=== PATIENT | male | born 1955 | race Caucasian/White ===

== ENCOUNTER → 2024-01-26 11:27 | Outpatient (REF) | payer OTHER, SELFPAY ==
[2024-01-26 11:51] VITALS: BP 133/71; BP_SYST 58
[2024-01-26 12:51] VITALS: BP 118/70
== END ==
LOC: RADI 11:27
PROVIDERS: ATTENDING PHYSICIAN Internal Medicine Hematology & Oncology; FAMILY PHYSICIAN Family Medicine
DX: R77.9 Abnormality of plasma protein, unspecified (principal); G62.9 Polyneuropathy, unspecified; E85.9 Amyloidosis, unspecified
CPT/HCPCS: 88305; 20206; 76942; 88313

== ENCOUNTER → 2024-04-17 11:03 | Outpatient (REF) | payer OTHER, SELFPAY ==
[2024-04-17 11:32] LABS: % Basophils 0.6 % (0-2); % Eosinophils 5.2 % (0-6); % Immature Granulocytes 0.3 % (0-0.5); % Monocytes 12.7 % (1.7-9.3); % Neutrophils 50.2 % (42.2-75.2); Absolute Basophils 0.1 10^3/uL (0-0.2); Absolute Eosinophils 0.4 10^3/uL (0-0.7); Absolute Lymphocytes 2.4 10^3/uL (1.2-3.4); Absolute Neutrophils 3.9 10^3/uL (1.4-6.5); Hematocrit 40.2 % (39.0-52.0); Hemoglobin 14.7 g/dL (13.0-18.0); Mean Corp Hgb Conc. 36.6 g/dL (33.0-37.0); Mean Corpuscular Hgb 33.9 pg (27.0-31.0); Mean Corpuscular Volume 92.6 fL (80.0-94.0); Mean Platelet Volume 9.5 fL (7.4-10.4); Nucleated Red Blood Cells % 0 % (-); Platelet Count 202 10^3/uL (130-400); Red Blood Cell Count 4.34 10^6/uL (4.70-6.10); Red Cell Dist. Width 12.8 % (11.5-14.5); White Blood Cell Count 7.7 10^3/uL (4.8-10.8)
[2024-04-17 11:39] VITALS: BP 133/84; BP_SYST 53
[2024-04-17 11:39] LABS: INR 1.03; PT 13.5 Sec (11.4-14.6)
[2024-04-17] MEDS: FLUSH (NSS) 1 FLUSH IV (12:16)
[2024-04-17] MEDS: ATIVAN 0.5 MG IV (12:16)
[2024-04-17 13:00] VITALS: BP 113/66; BP_SYST 52
== END ==
LOC: RADI 11:03
PROVIDERS: ATTENDING PHYSICIAN Internal Medicine Hematology & Oncology
DX: R77.9 Abnormality of plasma protein, unspecified (principal); E85.9 Amyloidosis, unspecified
CPT/HCPCS: 88305; 88311; 88312; 36415; 38222; 77012; 85025; 85610; 88313; 88341; 88342; 88365

== ENCOUNTER → 2024-08-03 08:47 | Outpatient (REF) | payer OTHER, SELFPAY | LOC: RCS 08:47 | PROVIDERS: ATTENDING PHYSICIAN Internal Medicine Hematology & Oncology; FAMILY PHYSICIAN Family Medicine | DX: G62.9 Polyneuropathy, unspecified (principal); E85.89 Other amyloidosis | CPT/HCPCS: 93306 ==